=== PATIENT | female | born 1945 | race Caucasian/White ===

== ENCOUNTER 2017-09-21 13:52 | Emergency (ER) | payer BC ==
[~2017-09-21] VITALS: Ht 157.5 cm; Wt 57.2 kg
[2017-09-21 13:55] VITALS: BP 142/75
== END 2017-09-21 17:09 | disposition home or self-care (01) ==
LOC: ED 13:52
DX: S52.501A Unspecified fracture of the lower end of right radius, initial encounter for closed fracture (principal); F32.9 Major depressive disorder, single episode, unspecified; I10 Essential (primary) hypertension; E11.9 Type 2 diabetes mellitus without complications; Z88.0 Allergy status to penicillin; W45.8XXA Other foreign body or object entering through skin, initial encounter; Y93.89 Activity, other specified; Y92.89 Other specified places as the place of occurrence of the external cause; Y99.8 Other external cause status
CPT/HCPCS: A4570